=== PATIENT | male | born 1945 | race Caucasian/White ===

== ENCOUNTER → 2017-12-30 | Outpatient (CLI) | payer MEDICARE ==
--- NOTE | 2017-12-30 11:48 | Diagnostic Imaging Report ---
PROCEDURE:CT PELVIS WITHOUT CONTRAST COMPARISON:None. INDICATIONS:Muscle strain; history of falls. TECHNIQUE:Multidetector imaging of the pelvis was performed from the lower abdomen to the pubic symphysis without IV or oral contrast. Coronal and sagittal multiplanar reformations were obtained. FINDINGS: Lack of contrast limits evaluation for visceral findings. Subcutaneous edema is present in the midline lower back. There is a compression fracture of the L5 vertebral body with loss of less than 50 percent of vertebral body height. No bony retropulsion. Extensive degenerative disc and endplate changes at L3-L4. No acute fracture identified elsewhere in the pelvis. The partially visualized kidneys are unremarkable. Extensive atherosclerotic calcifications of the abdominal aorta and branch vessels. Diverticulosis without CT evidence of diverticulitis. Enlarged prostate measuring up to 5 cm. Mildly thick walled bladder which may reflect under distension. No evidence of adenopathy or free fluid. CONCLUSION: Soft tissue edema in the lower back. Age indeterminate compression fracture of the L5 vertebral body (which may be acute) with loss of less than 50 percent of vertebral body height and no bony retropulsion. No evidence of acute fracture in the pelvis. Dictated by: LEO REYNAGA M.D. on 12/30/2017 at 11:54 Electronically approved by: LEO REYNAGA M.D. on 12/30/2017 at 11:54
--- NOTE | 2017-12-30 13:28 | Diagnostic Imaging Report ---
Exam: Left kneeCT without contrast. History: Knee pain. Fracture. Injury. Muscle strain. Fracture of lateral condyle of the left tibia. Comparison:None Technique: Utilizing a 64-slice multidetector CT, axial imaging was performed through the <> without IV contrast. Multiplanar reformation was performed. 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 Scattered vascular calcifications are seen. There is a suprapatellar joint effusion. The visualized muscles are normal in size and morphology. There is what appears to be an avulsion-type fracture involving the posterior medial tibial plateau in the intercondylar notch region with an adjacent bone fragment. This is best seen on coronal reformatted image 68 through 72 and sagittal reformatted image 46 through 50. Impression: Apparent avulsion type fracture involving the posterior medial tibial plateau and the intercondylar notch region with adjacent bone fragment. 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 Signed by: Dr. Huey Villegas M.D. on 12/30/2017 1:24 PM
--- NOTE | 2017-12-31 11:20 | Diagnostic Imaging Report ---
EXAMINATION: CT of the thoracic spine without contrast. HISTORY: Trauma, back pain, left lower extremity pain. Thoracic spine fracture at T11-T12 follow-up. COMPARISON: None. TECHNIQUE: Multidetector helical axial images were obtained without contrast through the thoracic spine. The images were reconstructed using bone and soft tissue algorithms and were viewed in axial, sagittal and coronal planes. FINDINGS: Curvature: Normal kyphosis. Mild S-shaped scoliosis. Alignment: Minimal likely chronic and degenerative anterolisthesis at C7-T1 and T2-T3. Vertebrae: -Status post percutaneous vertebral cement injection at L1 for treatment of osteoporotic compression fracture. -Age-indeterminate perhaps subacute compression fracture of the T12 vertebral body, with depression of the superior endplate and decreased vertebral body height by approximately 15%. Minimal posterior retropulsion of the superior endplate results in minimal canal narrowing. -Shallow Schmorl nodes at T12, T6, T9. Chronic endplate degenerative changes at T2-T3 and T6-T7. Discs: Symmetric disc bulge with block phenomena at T11-T12 and T12-L1. Small disc osteophyte complex formation at T4-T5, T5-T6, T6-T7, T8-T9, T9-T10 without significant stenoses. Spinal canal: Unremarkable. Paraspinal soft tissues: Unremarkable. Posterior ribs: Unremarkable. IMPRESSION: 1. Age indeterminate likely subacute mild compression fracture of T12 vertebral body with depression of the superior endplate and minimal posterior retropulsion as detailed above. Comparison to prior studies is advised. 2. Status post percutaneous cement injection for treatment of L1 compression fracture. 3. Mild degenerative changes without significant canal or foraminal stenosis as detailed above. 4. Minimal spondylolisthesis at C7-T1 and T2-T3. Spondylolisthesis Signed by: Dr. Chanelle Banuelos M.D. on 12/31/2017 11:16 AM
== END ==
LOC: CT 10:31
PROVIDERS: ATTEND Specialist
DX: S82.125A Nondisplaced fracture of lateral condyle of left tibia, initial encounter for closed fracture (principal); S22.080A Wedge compression fracture of T11-T12 vertebra, initial encounter for closed fracture; S39.012A Strain of muscle, fascia and tendon of lower back, initial encounter
CPT/HCPCS: 72128; 72192

== ENCOUNTER 2018-02-10 10:00 | Outpatient (RCR) | payer MEDICARE | END 2018-02-14 | LOC: PT 10:00 | PROVIDERS: ATTEND Specialist | DX: S82.202A Unspecified fracture of shaft of left tibia, initial encounter for closed fracture (principal); M25.562 Pain in left knee; M25.662 Stiffness of left knee, not elsewhere classified; M62.81 Muscle weakness (generalized) | CPT/HCPCS: 97110 ×5; 97162; G8978; G8979 ==

== ENCOUNTER 2018-03-16 10:00 | Outpatient (RCR) | payer MEDICARE | END 2018-03-17 | LOC: PT 10:00 | PROVIDERS: ATTEND Specialist | DX: M25.562 Pain in left knee (principal); M25.662 Stiffness of left knee, not elsewhere classified; M62.81 Muscle weakness (generalized) | CPT/HCPCS: 97110 ×9; G8978; G8979 ==

== ENCOUNTER 2018-04-15 10:00 | Outpatient (RCR) | payer MEDICARE | END 2018-04-16 | LOC: PT 10:00 | PROVIDERS: ATTEND Specialist | DX: M25.562 Pain in left knee (principal); S82.142D Displaced bicondylar fracture of left tibia, subsequent encounter for closed fracture with routine healing | CPT/HCPCS: 97110 ×8; G8978; G8979 ==

== ENCOUNTER 2023-12-04 15:23 | Outpatient (RCR) | payer MEDICARE ==
[~2023-12-04 15:23] MED LIST: ATORVASTATIN CA40 MG PO; CELEXA20 MG PO; CEPHALEXIN500 MG PO; CYMBALTA30 MG PO; ELIQUIS2.5 MG PO; LASIX40 MG PO; LYRICA150 MG PO; MEDIHONEY15 ML; MULTIVITAMIN1 EACH PO; NICODERM CQ1 EAC2 TOP; PROPAFENONE HC150 MG PO; TOPROL XL25 MG PO; TOUJEO SOL300 UNIT/1 SC; TOUJEO SOL300 UNIT/1 SQ
== END 2023-12-16 ==
LOC: WCC 15:23
PROVIDERS: ATTEND Podiatrist Foot & Ankle Surgery
DX: E10.622 Type 1 diabetes mellitus with other skin ulcer (principal); L89.311 Pressure ulcer of right buttock, stage 1; L97.328 Non-pressure chronic ulcer of left ankle with other specified severity; L98.9 Disorder of the skin and subcutaneous tissue, unspecified; R60.0 Localized edema
CPT/HCPCS: 87071; 87075; 87186; 87205

== ENCOUNTER 2024-01-01 10:07 | Outpatient (RCR) | payer MEDICARE ==
[2024-01-01] MEDS ORDERED: COLLAGENASE OINTMENT 30 GM TUBE ONE (11:24)
== END 2024-01-16 ==
LOC: WCC 10:07
PROVIDERS: ATTEND Podiatrist Foot & Ankle Surgery
DX: E11.622 Type 2 diabetes mellitus with other skin ulcer (principal); L89.311 Pressure ulcer of right buttock, stage 1; L97.328 Non-pressure chronic ulcer of left ankle with other specified severity; L97.319 Non-pressure chronic ulcer of right ankle with unspecified severity; S81.802A Unspecified open wound, left lower leg, initial encounter; L98.9 Disorder of the skin and subcutaneous tissue, unspecified; R60.0 Localized edema

== ENCOUNTER 2024-02-12 13:50 | Outpatient (RCR) | payer MEDICARE ==
[~2024-02-12 13:50] MED LIST changes: +COLLAGENASE OINTMENT 30 GM TUBE ONE; +MUPIROCIN 2% OINT 22 GM TUBE ONE
== END 2024-02-15 ==
LOC: WCC 13:50
PROVIDERS: ATTEND Podiatrist Foot & Ankle Surgery
DX: E11.622 Type 2 diabetes mellitus with other skin ulcer (principal); E11.621 Type 2 diabetes mellitus with foot ulcer; S81.802A Unspecified open wound, left lower leg, initial encounter; L97.328 Non-pressure chronic ulcer of left ankle with other specified severity; L97.522 Non-pressure chronic ulcer of other part of left foot with fat layer exposed; L97.319 Non-pressure chronic ulcer of right ankle with unspecified severity; L97.512 Non-pressure chronic ulcer of other part of right foot with fat layer exposed; L98.9 Disorder of the skin and subcutaneous tissue, unspecified; R60.0 Localized edema